=== PATIENT | female | born 1960 | race Caucasian/White ===

== ENCOUNTER → 2016-04-15 | Outpatient (CLI) | payer BC, OTHER ==
[~2016-04-15] MED LIST: AMLO-114 PO; CETI10TA84 PO; HYDR25TA4 PO; POTA-335 PO; RANI300T2 PO
--- NOTE | 2016-04-15 14:08 | MAMMOGRAPHY REPORT ---
BILATERAL DIGITAL SCREENING MAMMOGRAM WITH CAD: 04/15/2016 CLINICAL HISTORY: Routine screening. Patient has no complaints. TECHNIQUE: Bilateral CC and MLO views were obtained. Current study was also evaluated with a Comput er Aided Detection (CAD) system. COMPARISON: Comparison is made to exams dated: 04/12/2015 mammogram, 01/11/2013 mammogram, 04/06/2014 mammogram, 07/08/2012 ultrasound, 01/13/2012 mammogram, and 01/13/2012 ultrasound - [facility]. BREAST COMPOSITION: There are scattered areas of fibroglandular density in both breasts. FINDINGS: There are multiple bilateral circumscribed subcentimeter masses in the breasts, many of wh ich are stable in size dating back to at least 2011, others have fluctuated. There are scattered st able benign-appearing microcalcifications. No suspicious mass, architectural distortion or cluster o f microcalcifications is seen. IMPRESSION: ACR BI-RADS CATEGORY 1: NEGATIVE There is no mammographic evidence of malignancy. A 1 year screening mammogram is recommended. The p atient will receive written notification of the results. Approximately 10% of breast cancers are not detected with mammography. A negative mammographic repor t should not delay biopsy if a clinically suggestive mass is present. Candice Velásquez M.D. ay/:04/15/2016 13:37:11 Supervisor Nutritional Yeast: Rena BARKER(R)(M), [facility] letter sent: Normal 1/2 BI-RADS Code: ACR BI-RADS Category 1: Negative
== END | disposition home or self-care (01) ==
LOC: C.MAMM 13:13
PROVIDERS: ATTEND Obstetrics & Gynecology
DX: Z12.31 Encounter for screening mammogram for malignant neoplasm of breast (principal)

== ENCOUNTER → 2016-09-01 | Outpatient (CLI) | payer BC, OTHER | END | disposition home or self-care (01) | LOC: C.PAPS 09:57 | PROVIDERS: ATTEND Obstetrics & Gynecology | DX: Z01.419 Encounter for gynecological examination (general) (routine) without abnormal findings (principal) ==

== ENCOUNTER → 2017-05-13 | Outpatient (CLI) | payer OTHER ==
--- NOTE | 2017-05-14 14:43 | MAMMOGRAPHY REPORT ---
BILATERAL DIGITAL SCREENING MAMMOGRAM TOMOSYNTHESIS WITH CAD: 05/13/2017 CLINICAL HISTORY: Routine screening. Patient has no complaints. TECHNIQUE: Breast tomosynthesis in addition to standard 2D mammography was performed. Current study was also evaluated with a Computer Aided Detection (CAD) system. COMPARISON: Comparison is made to exams dated: 04/15/2016 mammogram, 04/12/2015 mammogram, 04/06/2014 m ammogram, 01/11/2013 mammogram, 07/08/2012 ultrasound, and 07/08/2012 mammogram - [facility]. BREAST COMPOSITION: There are scattered areas of fibroglandular density in both breasts. FINDINGS: There is stable nodularity bilaterally. No suspicious mass, architectural distortion or cl uster of microcalcifications is seen. IMPRESSION: ACR BI-RADS CATEGORY 1: NEGATIVE There is no mammographic evidence of malignancy. A 1 year screening mammogram is recommended. The pa tient will receive written notification of the results. Approximately 10% of breast cancers are not detected with mammography. A negative mammographic report should not delay biopsy if a clinically suggestive mass is present. Candice Velásquez M.D. ay/:05/13/2017 19:48:13 Wave Soldering Machine Operator: Chiquis Grossman, [facility] letter sent: Normal 1/2 BI-RADS Code: ACR BI-RADS Category 1: Negative
== END | disposition home or self-care (01) ==
LOC: C.MAMM 11:59
PROVIDERS: ATTEND Obstetrics & Gynecology
DX: Z12.31 Encounter for screening mammogram for malignant neoplasm of breast (principal)

== ENCOUNTER → 2017-05-27 | Outpatient (CLI) | payer OTHER ==
--- NOTE | 2017-05-27 09:36 | DIAGNOSTIC IMAGING REPORT ---
L WRIST MIN 3 VIEWS ROUTINE CLINICAL HISTORY: M25.539 Wrist pain, acuteTenderness at the base of the thumbs bi COMPARISON: None. DISCUSSION: The bones and joint spaces appear intact. There is no evidence of fracture, dislocation or bony disease. There is no evidence for soft tissue swelling. IMPRESSION: Negative study. The above report was generated using voice recognition software. It may contain grammatical, syntax or spelling errors. Electronically signed by: Satnam Brasher M.D. 05/27/2017 9:35 AM Dictated Date/Time: 05/27/2017 9:33 AM
== END | disposition home or self-care (01) ==
LOC: C.RAD1850 09:16
PROVIDERS: ATTEND Physician Assistant
DX: M25.531 Pain in right wrist (principal); M25.532 Pain in left wrist

== ENCOUNTER → 2017-11-01 | Outpatient (CLI) | payer OTHER ==
[~2017-11-01] MED LIST changes: -AMLO-114 PO; +AMLO10TA3 PO
--- NOTE | 2017-11-01 16:41 | DIAGNOSTIC IMAGING REPORT ---
RIGHT WRIST 4 VIEWS HISTORY: Right wrist pain. COMPARISON: None. FINDINGS: There is no fracture or dislocation. Soft tissues are unremarkable. No radiopaque foreign bodies. IMPRESSION: No fractures. Electronically signed by: Antonio Wade M.D. 11/01/2017 4:40 PM Dictated Date/Time: 11/01/2017 4:25 PM
--- NOTE | 2017-11-01 17:44 | DIAGNOSTIC IMAGING REPORT ---
R TIBIA/FIBULA 2 VIEWS ROUTINE CLINICAL HISTORY: Right lower leg pain, swelling and bruising. COMPARISON: None FINDINGS: There is no acute fracture of the right tibia or fibula. Lucency projecting over the posterior distal right tibia is likely artifactual. There is moderate posterior calcaneal spurring. Alignment of the right knee and ankle is anatomic. Talar dome is intact. IMPRESSION: No definite acute fracture of the right tibia or fibula. Lucency projecting over the posterior distal right tibia is likely artifactual. An acute nondisplaced fracture could appear similar although is considered less likely. Electronically signed by: Amadeo Bertrand M.D. 11/01/2017 5:43 PM Dictated Date/Time: 11/01/2017 5:39 PM
== END | disposition home or self-care (01) ==
LOC: C.RAD1850 16:04
PROVIDERS: ATTEND Physician Assistant Medical
DX: S80.10XA Contusion of unspecified lower leg, initial encounter (principal); S60.211A Contusion of right wrist, initial encounter; X58.XXXA Exposure to other specified factors, initial encounter

== ENCOUNTER → 2017-11-03 | Outpatient (CLI) | payer OTHER ==
--- NOTE | 2017-11-03 15:49 | DIAGNOSTIC IMAGING REPORT ---
R VENOUS DOPP LOWER EXT UNILAT CLINICAL HISTORY: M79.89 Right leg swelling pain. Edema. TECHNIQUE: Venous Doppler COMPARISON STUDY: None FINDINGS: Normal venous Doppler. No evidence for deep venous thrombosis. Soft tissue prominence adjacent to the right tibia measures 4.5 x 1.5 cm. This potentially represents a postprocedural hematoma. IMPRESSION: 1. Study is negative for deviation process. 2. The area swelling and/or edematous changes suggestive of a soft tissue hematoma The above report was generated using voice recognition software. It may contain grammatical, syntax or spelling errors. Electronically signed by: Satnam Brasher M.D. 11/03/2017 3:48 PM Dictated Date/Time: 11/03/2017 3:47 PM
--- NOTE | 2017-11-03 15:54 | DIAGNOSTIC IMAGING REPORT ---
RIGHT ANKLE 3 VIEWS HISTORY: M79.89 Right leg swelling COMPARISON: None. FINDINGS: There is no fracture or dislocation. Diffuse soft tissue swelling. No radiopaque foreign bodies. Plantar and posterior calcaneal spurs. IMPRESSION: Diffuse soft tissue swelling within the right ankle. No acute fracture or dislocation. Electronically signed by: Antonio Wade M.D. 11/03/2017 3:53 PM Dictated Date/Time: 11/03/2017 3:50 PM
== END | disposition home or self-care (01) ==
LOC: C.ULTR 15:12
PROVIDERS: ATTEND Nurse Practitioner Adult Health
DX: I82.4Z9 Acute embolism and thrombosis of unspecified deep veins of unspecified distal lower extremity (principal); S89.91XA Unspecified injury of right lower leg, initial encounter; S99.911A Unspecified injury of right ankle, initial encounter; X58.XXXA Exposure to other specified factors, initial encounter; M79.89 Other specified soft tissue disorders; R93.8 Abnormal findings on diagnostic imaging of other specified body structures